=== PATIENT | male | born 1955 | race Caucasian/White ===

== ENCOUNTER 2019-07-19 13:55 | Emergency (ER) | payer BC, SELFPAY ==
[2019-07-19 14:03] VITALS: BP 149/83; PULSE 57; RESP 16; TEMP 37; O2SAT 99
[2019-07-19 14:39] VITALS: BP 135/98; PULSE 62; RESP 18; TEMP 36.6; O2SAT 98
--- NOTE | 2019-07-19 14:43 | PC.NURSE ---
Dr. Claros: [phone]. Nurse at this facility reports that the patient was given 0.5ml of TriMix at aproximately 1030. (Papaverine,Phentolamine,Alprostadil).
--- NOTE | 2019-07-19 15:06 | ED.MALEGU ---
HPI - Male Genitourinary General Chief complaint: Urogenital-Male Stated complaint: erection Time Seen by Provider: 07/19/19 15:03 Source: patient Mode of arrival: ambulatory Limitations: no limitations History of Present Illness HPI Narrative: The pt is a 63 y/o male who presents to the ED c/o painful, persistent erection onset 1100 today. Pt states that he went to his urologist, Dr. Monteiro, today for follow-up for his erectile dysfunction. He states that he received a TRIMIX shot and a reversal agent that he was told would help after 1-1.5 hours. He states that this did not provide relief, but he is beginning to improve. He notes that he did not partake in sexual activity today. Pt notes that he also tried to take Sudafed. The pt denies fever, ABRAMS, and cough. Pt notes that he has a PMHx of prostate CA, and that he had a prostatectomy in 02/2019. MD Complaint: other (Painful, persistent erection) Onset (ago): hour(s) (4 ) Duration: improved Location: penis Relieving factors: none Context: new medication (TRIMIX) Associated symptoms: Reports denies other symptoms Related Data Allergies Allergy/AdvReac Type Severity Reaction Status Date / Time Penicillins Allergy Verified 11/20/12 03:36 Review of Systems Review of Systems: All systems reviewed & are unremarkable except as noted in HPI and below Constitutional: Constitutional: Denies fever(s) Respiratory: Respiratory: Denies cough Genitourinary: Genitourinary: Reports other (Persistent, painful erection) Neurologic: Denies headache(s) PMFSH Past Medical History Medical History (Updated 07/19/19 @ 15:56 by Monica Gomez MD) Erectile dysfunction Prostate CA Surgical History Surgical History (Updated 07/19/19 @ 15:24 by Uche Alejandra) H/O prostatectomy Social History Social History (Updated 07/19/19 @ 15:25 by Uche Alejandra) Smoking status: Never smoker Gender identity (if verbalized by the patient): Male Comments Urologist: Dr. Monteiro Exam Narrative: Exam Narrative: General appearance: Well-developed, well-nourished Skin: Normal color Head: Normocephalic, nontraumatic Eyes: Clear conjunctiva ENT: Oropharynx normal, ears normal, nose normal Neck: Supple, nontender Chest and respiratory: Airway patent, no respiratory distress, no accessory muscle use Heart: Regular rate/rhythm Abdomen: Soft, nontender, no organomegaly, quiet bowel sounds, urogenital exam showed semierect penis, no tenderness, slight bruises at the site of injection. Patient reports 50% improvement over the last 1 hour. Vascular: Normal peripheral pulses, normal capillary refill. Musculoskeletal: Normal range of motion, nontender back Neurologic: Alert and oriented ?3, P[employer] M[employer]ER is normal as tested, no gross motor deficit Course Course Emergency Course: Improving Consultations Consultation #1: Discussed case with Dr. Monteiro, states pt should call him tomorrow if there is no improvement in symptoms. Date: 07/19/19 Time: 15:35 Vital Signs Vital signs: Vital Signs Temperature 37.0 C 07/19/19 14:03 Pulse Rate 57 L 07/19/19 14:03 Respiratory Rate 16 07/19/19 14:03 Blood Pressure 149/83 H 07/19/19 14:03 Pulse Oximetry 99 07/19/19 14:03 Temperature 36.6 C 07/19/19 14:39 Pulse Rate 62 07/19/19 14:39 Respiratory Rate 18 07/19/19 14:39 Blood Pressure 135/98 H 07/19/19 14:39 Pulse Oximetry 98 07/19/19 14:39 MDM - Male Genitourinary MDM Narrative Medical decision making narrative: Penile erection is improving. Patient will be discharged to follow-up with his urologist tomorrow if there is any concern. Discussed with Dr. Rodriguez Critical Care Time Cr
[2019-07-19 16:32] VITALS: BP 128/74; PULSE 59; RESP 16; TEMP 36.2; O2SAT 98
== END 2019-07-19 16:32 | disposition home or self-care (01) ==
PROVIDERS: Emergency Provider Emergency Medicine
DX: N48.30 Priapism, unspecified (principal); Z85.46 Personal history of malignant neoplasm of prostate; Z90.79 Acquired absence of other genital organ(s); N52.9 Male erectile dysfunction, unspecified
CPT/HCPCS: 99281

== ENCOUNTER 2021-05-12 00:48 | Day surgery (SDC) | payer BC, SELFPAY ==
[2021-04-23 11:56] VITALS: BMI 26.4
[2021-05-12 11:41] VITALS: BP 142/70; PULSE 70; RESP 18; TEMP 36.5; O2SAT 100
[2021-05-12] MEDS: LACTATED RINGERS 1,000 ML 150 ML IV CONT (11:47)
--- NOTE | 2021-05-12 12:07 | WPDGICN ---
Assessment and Plan Assessment and plan (1) Encounter for screening colonoscopy: Code(s): Z12.11 - Encounter for screening for malignant neoplasm of colon Status: Acute Assessment and Plan: Patient presents for screening colonoscopy. Appears to be at average risk for colon polyps. Further recommendations will be given after endoscopy. GI Consult Note Consult date/time: 05/12/21 12:07 HPI: Ihsan Quigley is a 65 year old male Presents for screening colonoscopy. Patient's current weight appetite bowel movements are normal. He denies abdominal pain. He has had no bleeding. Family history is noncontributory. Patient does report frequent loose stools. He denies any blood in his stools. Review of Systems Review of Systems: All systems reviewed & are unremarkable except as noted in HPI and below PMFSH Past Medical History Medical History (Updated 05/12/21 @ 12:09 by Jonathan Jorge MD) Erectile dysfunction Prostate CA Surgical History Surgical History (Updated 07/19/19 @ 15:24 by Uche Alejandra) H/O prostatectomy Social History Social History (Updated 07/19/19 @ 15:25 by Uche Alejandra) Years smoked: 20 Smoking status: Former smoker Tobacco type: cigarettes Substance use: current Substance use type: marijuana Gender identity (if verbalized by the patient): Male Meds Home Medications and Allergies Home Medications Medication Instructions Recorded Confirmed Type lisinopril 10 mg PO DAILY 04/23/21 04/23/21 History testosterone enanthate 200 mg IM WEEKLY 04/23/21 04/23/21 History zolpidem 5 mg PO HS 04/23/21 04/23/21 History Allergies Allergy/AdvReac Type Severity Reaction Status Date / Time Penicillins Allergy Rash Verified 05/12/21 11:38 Vital Signs Vital Signs - 24 hr 05/12/21 11:41 Temperature 97.7 F Pulse Rate 70 Respiratory Rate 18 Blood Pressure 142/70 H Pulse Oximetry 100 Exam Narrative: Physical exam reveals patient be alert. Vital signs stable. HEENT exam is unremarkable. Patient is anicteric. Lungs are clear to auscultation and percussion. Heart is without murmur or extra sounds. Abdominal exam bowel sounds are present soft nontender with no organomegaly. Digital external rectal exam is normal.
--- NOTE | 2021-05-12 12:27 | P.PNAN_ITS ---
Anes - Initial Pre Proc Eval Procedure: Operation Date: 05/12/21 13:00 Proposed Procedures p Screening Colonoscopy - Jonathan Jorge MD Date/Time: 05/12/21 12:27 Surgeon: Jonathan Jorge MD Pre Op Diagnosis: neoplasm screening Patient Data Age: 65 Gender: M Height: 1.83 m Weight: 84.4 kg Last Vital Signs Temp 36.5 C 05/12/21 11:41 Pulse 70 05/12/21 11:41 Resp 18 05/12/21 11:41 BP 142/70 H 05/12/21 11:41 Pulse Ox 100 05/12/21 11:41 Allergies Allergy/AdvReac Type Severity Reaction Status Date / Time Penicillins Allergy Rash Verified 05/12/21 11:38 Home Medications Medication Instructions Recorded Confirmed Type lisinopril 10 mg PO DAILY 04/23/21 04/23/21 History testosterone enanthate 200 mg IM WEEKLY 04/23/21 04/23/21 History zolpidem 5 mg PO HS 04/23/21 04/23/21 History Patient hx anesthesia problems: none Family hx anesthesia problems: none Results Review: All pre-operative results and documents have been reviewed as part of the pre-operative evaluation. [facility] Past Medical History Medical History (Updated 05/12/21 @ 12:27 by Jairo Collins DO) Erectile dysfunction Hypertension YARON (obstructive sleep apnea) Prostate CA Surgical History Surgical History (Updated 07/19/19 @ 15:24 by Uche Alejandra) H/O prostatectomy Social History Social History (Updated 07/19/19 @ 15:25 by Uche Alejandra) Years smoked: 20 Smoking status: Former smoker Tobacco type: cigarettes Substance use: current Substance use type: marijuana Gender identity (if verbalized by the patient): Male Anes - Eval Final PreProcedure Day of Procedure 05/12/21 12:27 Patient weight: overweight Heart: regular rate and rhythm Lungs: clear to auscultation and normal air movement Airway: Mallampati scale class II Neurological: alert and oriented Last oral intake: >/= 8 hours ASA classification: III Emergent: no Anesthetic plan: proceed Anesthesia type and monitoring: general GIVS and standard monitoring Results Review: All pre-operative results and documents have been reviewed as part of the pre-operative evaluation. Informed Consent: The patient's anesthetic plan and its attendant risks and benefits were discussed with the patient/family/POA. Questions were solicited and answers provided to the satisfaction of the patient/family/POA.
[2021-05-12 13:10] VITALS: BP 98/64; PULSE 81; RESP 16; O2SAT 100
[2021-05-12 13:20] VITALS: BP 108/67; PULSE 68; RESP 19; O2SAT 100
[2021-05-12 13:30] VITALS: BP 105/69; PULSE 64; RESP 17; O2SAT 99
== END 2021-05-12 13:25 | disposition home or self-care (01) ==
PROVIDERS: PCP Student in an Organized Health Care Education/Training Program; Visit Provider Internal Medicine Gastroenterology
PROC: 0DJD8ZZ Inspection of Lower Intestinal Tract, Via Natural or Artificial Opening Endoscopic (ICD-10-PCS; CPT 45378; principal; 2021-05-12 13:00)
DX: Z12.11 Encounter for screening for malignant neoplasm of colon (principal); K64.8 Other hemorrhoids; I10 Essential (primary) hypertension; G47.33 Obstructive sleep apnea (adult) (pediatric); Z85.46 Personal history of malignant neoplasm of prostate; Z87.891 Personal history of nicotine dependence; F12.90 Cannabis use, unspecified, uncomplicated
CPT/HCPCS: 45378; J2704; J7120

== ENCOUNTER 2021-08-08 03:10 | Emergency (ER) | payer BC, SELFPAY ==
[2021-08-08 03:13] VITALS: BP 120/68; PULSE 77; RESP 18; TEMP 37; O2SAT 99
[2021-08-08] MEDS: diphenhydrAMINE HCl INJ 50 MG/ML VIAL 25 MG IV PUSH ×2 (04:04→05:30)
--- NOTE | 2021-08-08 04:05 | ED.MALEGU ---
HPI - Male Genitourinary General Chief complaint: Urogenital-Male Stated complaint: 5hr erection Time Seen by Provider: 08/08/21 03:29 History of Present Illness HPI Narrative: Patient is a 66-year-old male who presents ER with food reaction that lasted about 5 hours. Onset when he gave himself a Trimix injection for erectile dysfunction. Patient has history of priapism in the past after injection. Reports usually if he takes a Sudafed or Benadryl symptoms improved but he forgot to do that tonight. Reports that he will have discomfort and hardness but then it will start to ease up and then return. No discoloration. No trauma. Patient was intimate this evening. Related Data Home Medications Medication Instructions Recorded Confirmed lisinopril 10 mg PO DAILY 04/23/21 04/23/21 testosterone enanthate 200 mg IM WEEKLY 04/23/21 04/23/21 zolpidem 5 mg PO HS 04/23/21 04/23/21 Allergies Allergy/AdvReac Type Severity Reaction Status Date / Time Penicillins Allergy Rash Verified 07/15/21 15:03 Review of Systems Review of Systems: All systems reviewed & are unremarkable except as noted in HPI and below Constitutional: Constitutional: Denies chills, Denies fever(s) and Denies weakness Gastrointestinal: Gastrointestinal: Denies abdominal pain, Denies diarrhea, Denies nausea and Denies vomiting Genitourinary: Genitourinary: Denies dysuria, Denies testicular pain and Denies urinary frequency Comments: Prolonged erection PMFSH Past Medical History Medical History (Updated 08/08/21 @ 05:58 by Isrrael Salgado MD) Erectile dysfunction Hypertension YARON (obstructive sleep apnea) Prostate CA Surgical History Surgical History (Updated 07/15/21 @ 15:03 by Courtney Noland) H/O prostatectomy Social History Social History (System 07/15/21 @ 15:03 by Courtney Noland) Years smoked: 20 Smoking status: Former smoker Tobacco type: cigarettes Substance use: current Substance use type: marijuana Gender identity (if verbalized by the patient): Male Exam Narrative: GENERAL: Well-appearing, well-nourished, and in no acute distress. HEAD: Normocephalic, atraumatic. CHEST: Clear to auscultation. No respiratory distress. HEART: Regular rate and rhythm. Normal peripheral pulses. : Erect penis is nontender. No discoloration. EXTREMITIES: Normal range of motion. No edema. SKIN: Warm, dry, no rash. NEURO: Alert and oriented x3. PSYCH: Normal mood and affect. Course Reevaluation(s) Reevaluation #1: Discussed with Dr. Gonzalez. patient's erection has decreased in size and firmness. It is no longer sticking straight up. Is not recommended that patient have aspiration or irrigation performed. Patient can receive additional Benadryl since it seems to improve his symptoms. Feels patient can be discharged as long as the penis continues to have bend to it and is not exquisitely tender. Recommend come back should erection recur and become increasingly tender. Date: 08/08/21 Time: 05:25 Reevaluation #2: Patient received a second dose of Benadryl. Reports he is having significant improvement and feels comfortable with going home. He recognizes signs and symptoms necessitating return to the ER. Date: 08/08/21 Time: 05:55 Vital Signs Vital signs: Vital Signs Temperature 98.6 F 08/08/21 03:13 Pulse Rate 77 08/08/21 03:13 Respiratory Rate 18 08/08/21 03:13 Blood Pressure 120/68 08/08/21 03:13 Pulse Oximetry 99 08/08/21 03:13 Temperature 98.6 F 08/08/21 03:13 Pulse Rate 75 08/08/21 05:33 Respiratory Rate 16 08/08/21 05:33 Blood Pressure 106/77 08/08/21 05:33 Pulse Oximetry 97 08/08/21 05:33 Discharge Plan Discharge Clinical Impression: Priapism Patient Disposition: Home, Self-Care Condition: Stable Instructions: Priapism (ED) Additional Instructions: Return the ER if you are having increased engorgement or pain in your penis, you are unable to urinate, or you have an
[2021-08-08 05:33] VITALS: BP 106/77; PULSE 75; RESP 16; O2SAT 97
== END 2021-08-08 06:20 | disposition home or self-care (01) ==
PROVIDERS: Emergency Provider Emergency Medicine; PCP Student in an Organized Health Care Education/Training Program
DX: N48.33 Priapism, drug-induced (principal); T50.995A Adverse effect of other drugs, medicaments and biological substances, initial encounter
CPT/HCPCS: 96374; 96376; 99284; J1200